=== PATIENT | male | born 1985 | race African-American/Black ===

== ENCOUNTER 2021-01-20 19:29 | Emergency (ER) | payer OTHER ==
[~2021-01-20] VITALS: Ht 177.8 cm; Wt 98.0 kg
[2021-01-20 19:35] VITALS: BP 143/78
[2021-01-20] MEDS ORDERED: DEXAMETHASONE 4 MG TABLET PO ONE (20:15)
[2021-01-20] MEDS ORDERED: HYDROcodone/APAP 5/325MG 1 TAB TABLET PO ONE (20:15)
[2021-01-20] MEDS ORDERED: AMOXICILLIN/K CLAV 875/125MG TABLET. PO ONE (20:15)
[2021-01-20] MEDS ORDERED: AMOX1TAB61 PO (20:20)
[2021-01-20] MEDS ORDERED: CHLO15MO2 PO (20:20)
[2021-01-20] MEDS ORDERED: HYDR-2155 PO (20:20)
--- NOTE | 2021-01-20 20:21 | PHYS DOC ---
Past History Past Medical History: Hypertension Past Surgical History: No Surgical History Smoking: Cigarettes Alcohol Use: None Drug Use: None General Adult EDM: Chief Complaint: DENTAL PROBLEM HPI: HPI: 35-year-old male presents with dental pain that is been ongoing for the past several days. Reports history of dental caries. Reports pain to left maxillary molar region. Denies fever or chills. Reports has trialed [id number] ibuprofen and Tylenol without improvement of pain. Review of Systems: Review of Systems: Constitutional: Denies fever or chills HENT: Denies nasal congestion or sore throat; reports tooth ache Integument: Denies rash or skin lesions Neurologic: Denies headache, focal weakness or sensory changes Complete systems were reviewed and found to be within normal limits, except as documented in this note. Current Medications: Current Meds: Current Medications Medications (Trade) Dose Ordered Sig/Anne Marie Start Time Stop Time Status Last Admin Dose Admin Acetaminophen/ Hydrocodone Bitart (Lortab 5/325) 1 tab 1X ONCE 01/20/21 20:15 01/20/21 20:16 UNV Amoxicillin/ Clavulanate Potassium (Augmentin 875/ 125mg) 1 tab 1X ONCE 01/20/21 20:15 01/20/21 20:16 UNV Dexamethasone (Decadron) 10 mg 1X ONCE 01/20/21 20:15 01/20/21 20:16 UNV Physical Exam: PE: Constitutional: Well developed, well nourished, no acute distress, non-toxic appearance HENT: Normocephalic, atraumatic, poor dentition throughout, significant dental caries to left maxillary second premolar and first molar with exposure of dentin, left gingival swelling noted, no fluctuant mass consistent for drainable abscess Eyes: Conjunctiva normal, no discharge Neck: Normal range of motion, supple Lungs & Thorax: No respiratory distress, equal chest rise and fall Skin: Warm, dry, no erythema, no rash Neurologic: Alert and oriented X 3, no focal deficits noted Psychologic: Affect normal, judgment normal EKG: EKG: [] Radiology/Procedures: Radiology/Procedures: [] Heart Score: C/O Chest Pain: N/A Course & Med Decision Making: Course & Med Decision Making Patient with dental decay presents with toothache to maxillary molar region. No drainable abscess appreciated. Significant dental caries noted. Symptomatic treatment provided with oral steroid, IM Toradol, and oral Banks. Patient stable for discharge with outpatient follow-up with PCP/dentist. Community resources provided. Discussed findings and plan with patient and significant other, who acknowledge understanding and agreement. [employer] Disclaimer: Libert[employer] Disclaimer: This electronic medical record was generated, in whole or in part, using a voice recognition dictation system. Departure Departure: Impression: Primary Impression: Dentalgia Additional Impression: Dental caries Disposition: HOME / SELF CARE / HOMELESS Condition: STABLE Referrals: PCP,ADELAIDE (PCP) Patient Instructions: Dental Caries, Toothache-Brief Additional Instructions: May continue use of over the counter Ibuprofen in addition to prescribed pain medication. Scripts Chlorhexidine Gluconate (PERIDEX) 15 Ml Mouthwash 15 ML PO BID for Dental infection for 7 Days, #473 ML 0 Refills Prov: SCOTT MAC DO 01/20/21 Hydrocodone Bit/Acetaminophen (HYDROCODONE-APAP 5-325 ) 1 Each Tablet 0.5-1 TAB PO PRN Q6HRS PRN for PAIN, #10 TAB 0 Refills Prov: SCOTT MAC DO 01/20/21 Amoxicillin/Potassium Clav (AUGMENTIN 875-125 TABLET) 1 Each Tablet 1 TAB PO BID for Dental caries for 7 Days, #14 TAB 0 Refills Prov: SCOTT MAC DO 01/20/21 SCOTT MAC DO Jan 20, 2021 20:21
== END 2021-01-20 20:45 | disposition home or self-care (01) ==
LOC: ER 19:29
DX: K02.9 Dental caries, unspecified (principal); I10 Essential (primary) hypertension; F17.210 Nicotine dependence, cigarettes, uncomplicated
CPT/HCPCS: 99284; J8540